=== PATIENT | male | born 1955 | race Hispanic/Latino ===

== ENCOUNTER 2020-06-20 23:29 | Inpatient (IN) | payer SELFPAY ==
[~2020-06-20] VITALS: Ht 167.6 cm; Wt 83.9 kg
[2020-06-21] MEDS ORDERED: SODIUM CHLORIDE 0.9% 1000ML 1,000 ML IV ONE (00:24)
[2020-06-21 00:37] LABS: BASOPHILS % (AUTO) 0.2 % (0.0-5.0); EOSINOPHILS % (AUTO) 1.1 % (0.0-8.0); HEMATOCRIT 37.5 % (42-54); LYMPHOCYTES % (AUTO) 16.3 % (21.0-51.0); MEAN CORPUSCULAR HEMOGLOBIN 30.4 pg (27.0-33.0); MEAN CORPUSCULAR HGB CONC 33.3 g/dL (32.0-36.0); MEAN CORPUSCULAR VOLUME 91.2 fL (79-99); MONOCYTES % (AUTO) 9.6 % (3.0-13.0); NEUTROPHILS % (AUTO) 72.3 % (40.0-77.0); PLATELET COUNT (AUTO) 122 K/uL (130-400); RED BLOOD CELL COUNT(AUTO) 4.11 MIL/uL (4.50-6.20); RED CELL DISTRIBUTION WIDTH 14.1 % (11.0-15.5); WHITE BLOOD COUNT (AUTO) 10.2 K/uL (4.8-10.8)
[2020-06-21 00:39] LABS: POTASSIUM 3.4 mmol/L (3.5-5.1)
[2020-06-21 00:44] LABS: APPEARANCE,URINE Clear (CLEAR); BILIRUBIN,URINE Negative (NEGATIVE); COLOR,URINE Yellow (YELLOW); GLUCOSE, URINE (UA) Negative (NEGATIVE); KETONES,URINE Trace mg/dL (NEGATIVE); LEUKOCYTE ESTERASE ,URINE Negative (NEGATIVE); NITRATE,URINE Negative (NEGATIVE); OCCULT BLOOD,URINE Negative (NEGATIVE); PROTEIN,URINE Negative (NEGATIVE)
[2020-06-21 00:51] LABS: AMPHET/METH SCREEN,URINE NEGATIVE (NEGATIVE); BARBITURATE SCREEN, URINE NEGATIVE (NEGATIVE); BENZODIAZEPINES SCREEN,URINE NEGATIVE (NEGATIVE); CANNABINOID SCREEN,URINE NEGATIVE (NEGATIVE); COCAINE SCREEN,URINE NEGATIVE (NEGATIVE); OPIATE SCREEN,URINE NEGATIVE (NEGATIVE); PHENCYCLIDINE SCREEN,URINE NEGATIVE (NEGATIVE)
[2020-06-21 00:53] LABS: ALBUMIN 3.5 g/dL (3.5-5.0); BILIRUBIN,TOTAL 0.3 mg/dL (0.2-1.0)
[2020-06-21] MEDS ORDERED: ACETAMINOPHEN 325 MG TAB PO PRN ×2 (03:00)
[2020-06-21] MEDS ORDERED: ONDANSETRON HCL 4 MG/2 ML VIAL IV PRN (03:00)
[2020-06-21] MEDS ORDERED: LACTULOSE 20 GM/30 ML UDCUP PO PRN (03:00)
[2020-06-21] MEDS ORDERED: PHARMACY COMMUNICATION MISC PRN (03:00)
[2020-06-21] MEDS ORDERED: AZITHROMYCIN 500MG+NS 250ML 250 ML IV ONE (03:15)
[2020-06-21] MEDS ORDERED: DEXAMETHASONE SOD PHOSPHATE 10MG/ML 1ML VIAL ONE (03:15)
[2020-06-21] MEDS ORDERED: CEFTRIAXONE SODIUM 1 GM ONE (03:17)
[2020-06-21] MEDS ORDERED: LIDOCAINE HCL-MPF 1% 2ML VIAL IV PRN (03:45)
[2020-06-21] MEDS ORDERED: POTASSIUM CHLORIDE 20 MEQ ERTAB PO PRN (03:45)
[2020-06-21] MEDS ORDERED: POTASSIUM CHLORIDE 10% ELIXIR 20 MEQ/15 ML UDCUP PO PRN (03:45)
[2020-06-21] MEDS ORDERED: POTASSIUM CHLORIDE 10MEQ/100ML 100 ML IV PRN (03:45)
[2020-06-21] MEDS: THIAMINE HCL 100 MG, FOLIC ACID 1 MG, M.V.I. IV [ADULT] 10 ML in SODIUM CHLORIDE 0.9% 1... IV SCH (06:30)
[2020-06-21 08:17] LABS: BASOPHILS % (AUTO) 0.2 % (0.0-5.0); EOSINOPHILS % (AUTO) 0.5 % (0.0-8.0); HEMATOCRIT 39.9 % (42-54); LYMPHOCYTES % (AUTO) 11.3 % (21.0-51.0); MEAN CORPUSCULAR HEMOGLOBIN 30.3 pg (27.0-33.0); MEAN CORPUSCULAR HGB CONC 33.1 g/dL (32.0-36.0); MEAN CORPUSCULAR VOLUME 91.7 fL (79-99); MONOCYTES % (AUTO) 1.8 % (3.0-13.0); NEUTROPHILS % (AUTO) 85.8 % (40.0-77.0); PLATELET COUNT (AUTO) 127 K/uL (130-400); RED BLOOD CELL COUNT(AUTO) 4.35 MIL/uL (4.50-6.20); RED CELL DISTRIBUTION WIDTH 14.3 % (11.0-15.5); WHITE BLOOD COUNT (AUTO) 5.6 K/uL (4.8-10.8)
[2020-06-21 08:40] LABS: ALBUMIN 3.4 g/dL (3.5-5.0); BILIRUBIN,TOTAL 0.3 mg/dL (0.2-1.0); CREATININE 0.9 mg/dL (0.5-1.5); POTASSIUM 3.9 mmol/L (3.5-5.1); TOTAL PROTEIN, SERUM 6.9 g/dL (6.0-8.3)
[2020-06-21] MEDS: FAMOTIDINE/PF 20 MG/2 ML VIAL IV SCH (09:00)
[2020-06-21] MEDS ORDERED: FAMOTIDINE 20MG TAB 20 MG TAB ONE (09:59)
--- NOTE | 2020-06-21 10:16 | NUR ---
UNABLE TO ACCESS PATIENT HERE FOR ABD PAIN AND ETOH SLEEPING UNABLE TO ANSWER Addendum: 06/21/20 at 1024 by BRENNEN BUSTAMANTE RN RN Amended: Links added.
--- NOTE | 2020-06-21 10:18 | NUR ---
UNABLE TO ACCESS PATIENT HERE FOR ABD PAIN AND ETOH SLEEPING UNABLE TO ANSWER, STATES HE WAS HAVING A GOOD TIME Addendum: 06/21/20 at 1024 by BRENNEN BUSTAMANTE RN RN Amended: Links added.
[2020-06-21] MEDS ORDERED: THIAMINE HCL 100 MG/ML 2ML VIAL ONE (12:04)
[2020-06-21] MEDS ORDERED: M.V.I. IV [ADULT] 10 ML VIAL IV ONE (12:05)
[2020-06-21] MEDS ORDERED: FOLIC ACID 5 MG/ML 10 ML VIAL ONE (12:06)
--- NOTE | 2020-06-21 16:00 | NUR ---
CALL TO FEMI THE RN ASSIGNED TO THE PATIENT STATES NO FAMILY HAS CALLED,STATES CANNOT GIVE ANY INFO RE FAMILY. WILL TAG CHART FOR SW FOLLOW UP WHEN GET UP TO THE FLOOR
[2020-06-21] MEDS ORDERED: FAMOTIDINE/PF 20 MG/2 ML VIAL IV ONE (21:32)
[2020-06-22 06:17] LABS: BASOPHILS % (AUTO) 0.1 % (0.0-5.0); EOSINOPHILS % (AUTO) 0.5 % (0.0-8.0); HEMATOCRIT 39.6 % (42-54); LYMPHOCYTES % (AUTO) 18.1 % (21.0-51.0); MEAN CORPUSCULAR HEMOGLOBIN 30.2 pg (27.0-33.0); MEAN CORPUSCULAR HGB CONC 33.1 g/dL (32.0-36.0); MEAN CORPUSCULAR VOLUME 91.2 fL (79-99); MONOCYTES % (AUTO) 8.5 % (3.0-13.0); NEUTROPHILS % (AUTO) 72.4 % (40.0-77.0); PLATELET COUNT (AUTO) 130 K/uL (130-400); RED BLOOD CELL COUNT(AUTO) 4.34 MIL/uL (4.50-6.20); WHITE BLOOD COUNT (AUTO) 10.4 K/uL (4.8-10.8)
[2020-06-22] MEDS: THIAMINE HCL 100 MG, FOLIC ACID 1 MG, M.V.I. IV [ADULT] 10 ML in SODIUM CHLORIDE 0.9% 1... IV SCH (06:30)
[2020-06-22 06:43] LABS: ALBUMIN 3.7 g/dL (3.5-5.0); BILIRUBIN,TOTAL 0.3 mg/dL (0.2-1.0); POTASSIUM 4.1 mmol/L (3.5-5.1); TOTAL PROTEIN, SERUM 7.3 g/dL (6.0-8.3)
[2020-06-22 07:40] LABS: ABG BASE EXCESS -5.6 mmol/L (-2.0-3.0); ABG HCO3 19.2 mmol/L (21.0-28.0); ABG OXYGEN SATURATION 94.8 % (95.0-99.0); ABG PCO2 36 mmHg (35-48)
[2020-06-22 08:45] VITALS: BP 145/73
[2020-06-22] MEDS: FAMOTIDINE/PF 20 MG/2 ML VIAL IV SCH ×2 (09:00→21:00)
[2020-06-22] MEDS ORDERED: LEVO50TA11 PO (10:34)
[2020-06-22] MEDS ORDERED: FLUP10TA8 PO (10:34)
[2020-06-22] MEDS ORDERED: SERT100T12 PO (10:34)
[2020-06-22] MEDS ORDERED: ARIP15TA7 PO (10:34)
[2020-06-22] MEDS ORDERED: BENZ0.5T43 PO (10:34)
[2020-06-22] MEDS ORDERED: ATOR40TA71 PO (10:34)
[2020-06-22 11:39] VITALS: BP 149/78
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
--- NOTE | 2020-06-22 12:38 | NUR ---
CALL RECD "PLEASE ANTICIPATE DC TOMORROW FOR PATIENT" "KO HAS FOUND PT A SAFE SPOT" BUT NEEDS TO BE DC'D AT 0800 A PER TEAM ASSISTANT CHAIM CHAKRABORTY, MORE NOTES TO FOLLOW PENDING TO DISCUSS Hao MÉNDEZ
--- NOTE | 2020-06-22 12:51 | NUR ---
NUMBER FOR TRANSPORT [phone] [facility] IS GOING TO PROVIDE TRANPORT. CALL TO MD BELL PLAN OF CARE, AWAITING CALL BACK
--- NOTE | 2020-06-22 13:20 | NUR ---
CALL RECD- FROM [place] RE D/C- POSS IN AM? EXPLAINED THAT MD WANTS TO SEE THE CK BELOW 5OO ORDER FOR REPEAT CK AT 1700, CHECK W MD POST RESULT FOR ORDER, ALSO PUSH FLUIDS. 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
--- NOTE | 2020-06-22 13:25 | NUR ---
[facility] from Junie Martins [phone] with same info as given to AMANDA. PLAN: Nurse to call [facility] for transport when pt. is medically d/c'd at [phone] Junie will then provide transportation for pt. back to [place].
--- NOTE | 2020-06-22 13:41 | NUR ---
[facility]-Call from Lynne [phone] inquiring about pt's time of d/c tomorrow. SW provided tel# to nursing unit for f/u in AM re-d/c.
[2020-06-22 16:30] VITALS: BP 152/81
[2020-06-22] MEDS ORDERED: LACTATED RINGERS 1000ML 1,000 ML IV SCH (16:30)
--- NOTE | 2020-06-22 17:44 | NUR ---
ADVISED Kelsie CHAKRABORTY VIA TEXT THAT CK STILL HIGH (WENT UP) NOT GOING TO DC IN AM RESPONSE RECD, ACKNOWLEDGED RECIEPT OF INFO
[2020-06-22 20:00] VITALS: BP 160/79
[2020-06-22] MEDS: BENZTROPINE MESYLATE 0.5 MG TAB PO SCH (21:06)
[2020-06-22] MEDS: ARIPIPRAZOLE 5 MG TABLET PO SCH (21:06)
[2020-06-22] MEDS: ATORVASTATIN CALCIUM 40 MG TABLET PO SCH (21:06)
[2020-06-22] MEDS: SERTRALINE HCL 50 MG TABLET PO SCH (21:07)
[2020-06-22] MEDS: CHLORDIAZEPOXIDE HCL 25 MG CAP PO PRN (21:32)
[2020-06-22] MEDS: LORAZEPAM 2 MG/ML 1 ML VIAL IVP PRN (21:32)
[2020-06-23] VITALS: BP 133/85
[2020-06-23] MEDS: CHLORDIAZEPOXIDE HCL 25 MG CAP PO PRN ×4 (00:16→23:35)
[2020-06-23] MEDS: LORAZEPAM 2 MG/ML 1 ML VIAL IVP PRN ×3 (00:16→23:30)
[2020-06-23] MEDS: LACTATED RINGERS 1000ML 1,000 ML IV SCH (01:21)
[2020-06-23 04:00] VITALS: BP 151/90
[2020-06-23 04:19] LABS: BASOPHILS % (AUTO) 0.1 % (0.0-5.0); HEMATOCRIT 40.3 % (42-54); LYMPHOCYTES % (AUTO) 29.4 % (21.0-51.0); MEAN CORPUSCULAR HEMOGLOBIN 30.2 pg (27.0-33.0); MEAN CORPUSCULAR HGB CONC 33.7 g/dL (32.0-36.0); MEAN CORPUSCULAR VOLUME 89.6 fL (79-99); MONOCYTES % (AUTO) 7.4 % (3.0-13.0); PLATELET COUNT (AUTO) 124 K/uL (130-400); RED CELL DISTRIBUTION WIDTH 13.6 % (11.0-15.5); WHITE BLOOD COUNT (AUTO) 6.9 K/uL (4.8-10.8)
[2020-06-23 04:37] LABS: B-TYPE NATRIURETIC PEPTIDE 28 pg/mL (0-100)
[2020-06-23 04:52] LABS: ALBUMIN 3.6 g/dL (3.5-5.0); POTASSIUM 3.9 mmol/L (3.5-5.1); TOTAL PROTEIN, SERUM 7.2 g/dL (6.0-8.3)
[2020-06-23] MEDS: LEVOTHYROXINE 50 MCG TABLET PO SCH (06:00)
[2020-06-23 08:00] VITALS: BP 136/78
[2020-06-23] MEDS: FAMOTIDINE/PF 20 MG/2 ML VIAL IV SCH ×2 (09:16→23:03)
[2020-06-23] MEDS: BENZTROPINE MESYLATE 0.5 MG TAB PO SCH ×2 (09:16→23:01)
[2020-06-23] MEDS: SERTRALINE HCL 50 MG TABLET PO SCH ×2 (09:16→23:03)
[2020-06-23] MEDS: ARIPIPRAZOLE 5 MG TABLET PO SCH ×2 (09:16→23:01)
[2020-06-23] MEDS: THIAMINE HCL 100 MG, FOLIC ACID 1 MG, M.V.I. IV [ADULT] 10 ML in SODIUM CHLORIDE 0.9% 1... IV SCH (10:12)
[2020-06-23 12:00] VITALS: BP 127/84
[2020-06-23] MEDS ORDERED: FOLIC ACID 1 MG TABLET PO SCH (12:00)
[2020-06-23] MEDS ORDERED: THIAMINE HCL 100 MG TABLET PO SCH (12:00)
[2020-06-23] MEDS: THIAMINE HCL 100 MG TABLET PO SCH (14:18)
[2020-06-23] MEDS: FOLIC ACID 1 MG TABLET PO SCH (14:18)
[2020-06-23 16:00] VITALS: BP 132/76
[2020-06-23 19:00] VITALS: BP 120/79
[2020-06-23] MEDS: ATORVASTATIN CALCIUM 40 MG TABLET PO SCH (23:01)
[2020-06-24 00:17] VITALS: BP 132/76
[2020-06-24 04:00] VITALS: BP 138/80
[2020-06-24] MEDS: CHLORDIAZEPOXIDE HCL 25 MG CAP PO PRN (04:44)
[2020-06-24] MEDS: LACTATED RINGERS 1000ML 1,000 ML IV SCH ×2 (04:45→07:00)
[2020-06-24] MEDS: LEVOTHYROXINE 50 MCG TABLET PO SCH (05:44)
[2020-06-24] MEDS: LORAZEPAM 2 MG/ML 1 ML VIAL IVP PRN (05:49)
[2020-06-24 05:53] LABS: BASOPHILS % (AUTO) 0.1 % (0.0-5.0); EOSINOPHILS % (AUTO) 1.7 % (0.0-8.0); HEMATOCRIT 42.9 % (42-54); LYMPHOCYTES % (AUTO) 30.3 % (21.0-51.0); MEAN CORPUSCULAR HEMOGLOBIN 30.1 pg (27.0-33.0); MEAN CORPUSCULAR HGB CONC 33.6 g/dL (32.0-36.0); MEAN CORPUSCULAR VOLUME 89.7 fL (79-99); MONOCYTES % (AUTO) 8.2 % (3.0-13.0); NEUTROPHILS % (AUTO) 59.4 % (40.0-77.0); PLATELET COUNT (AUTO) 133 K/uL (130-400); RED BLOOD CELL COUNT(AUTO) 4.78 MIL/uL (4.50-6.20); RED CELL DISTRIBUTION WIDTH 13.2 % (11.0-15.5)
[2020-06-24 06:16] LABS: ALBUMIN 3.8 g/dL (3.5-5.0); BILIRUBIN,TOTAL 0.4 mg/dL (0.2-1.0); POTASSIUM 3.9 mmol/L (3.5-5.1); TOTAL PROTEIN, SERUM 7.5 g/dL (6.0-8.3)
[2020-06-24 08:00] VITALS: BP 154/88
[2020-06-24] MEDS: FAMOTIDINE/PF 20 MG/2 ML VIAL IV SCH (08:44)
[2020-06-24] MEDS: SERTRALINE HCL 50 MG TABLET PO SCH (08:44)
[2020-06-24] MEDS: ARIPIPRAZOLE 5 MG TABLET PO SCH (08:44)
[2020-06-24] MEDS: BENZTROPINE MESYLATE 0.5 MG TAB PO SCH (08:44)
[2020-06-24] MEDS: THIAMINE HCL 100 MG TABLET PO SCH (08:44)
[2020-06-24] MEDS: FOLIC ACID 1 MG TABLET PO SCH (08:47)
[2020-06-24 11:33] VITALS: BP 143/84
--- NOTE | 2020-06-24 13:17 | NUR ---
discharge went over discharge instructions with patient...pt stable and alert and oriented..medical phsycian has prescribed him vitamins and wants him to follow up with his psychiatrist from [facility]. provided patient with discharge forms and prescriptions. he is going to be picked up by [facility] bilingual patient support caseworker patbola katz. she is aware of discharge is on her way from [place]. she will take him to [facility] that has been arranged for him. she is aware that physician wants him to follow up with psychiatrist. she states he has worked on a safety plan with patient and will schedule him to see psychiatrist for Saturday. she is aware that physician wants him monitored for alcohol withdraw.
--- NOTE | 2020-06-24 14:15 | NUR ---
discharge patient escorted to exit doors where patient's tropical center case manger picked him up.. pt stable and alert during discharge.
== END 2020-06-24 13:45 | disposition home or self-care (01) | DRG 558 ==
LOC: EDH 23:29 → EDHIP 23:30 → 3CH 06-22 08:52
PROVIDERS: ADMIT Internal Medicine; ATTEND Internal Medicine
DX: M62.82 Rhabdomyolysis (principal); E87.1 Hypo-osmolality and hyponatremia; F10.129 Alcohol abuse with intoxication, unspecified; E87.6 Hypokalemia; Z20.828 Contact with and (suspected) exposure to other viral communicable diseases; Y90.6 Blood alcohol level of 120-199 mg/100 ml; F60.6 Avoidant personality disorder; F32.9 Major depressive disorder, single episode, unspecified; F60.7 Dependent personality disorder; F25.9 Schizoaffective disorder, unspecified
CPT/HCPCS: 36415; 36600; 71045; 74176; 80053; 80305; 81003; 82550; 82803; 83690; 83880; 84443; 84484; 85025; 87040; 87426; 93005; G0378; J0456; J0696; J1100; J2060; J3411; J3490; J7030; J7120; U0003